=== PATIENT | female | born 1940 | race Caucasian/White ===

== ENCOUNTER 2018-04-19 07:24 | Day surgery (SDC) | payer MEDICARE, BC ==
[2018-04-19] VITALS (10 sets, daily range): BP systolic 115–147; BP diastolic 58–75
[~2018-04-19] VITALS: Ht 170.2 cm; Wt 91.6 kg
--- NOTE | 2018-04-19 06:42 | Anethesia Preoperative Eval ---
Anesthesia Pre-op PMH/ROS General Date of Evaluation: Apr 19, 2018 Time of Evaluation: 06:41 Anesthesiologist: suni ASA Score: ASA 3 Mallampati Score Class I : Soft palate, uvula, fauces, pillars visible Class II: Soft palate, uvula, fauces visible Class III: Soft palate, base of uvula visible Class IV: Only hard plate visible Mallampati Classification: Class II Surgeon: cora Diagnosis: gerd, abdominal pain Surgical Procedure: egd/colonoscopy Anesthesia History: none Social History: smoking - nonsmoker Family History: no anesthesia problems Allergies: Coded Allergies: No Known Allergies (Unverified , 04/18/18) Medications: see eMAR Past Medical History Cardiovascular: Reports: HTN Gastrointestinal/Genitourinary: Reports: GERD, other - colon polyps, abdominal pain Endocrine: Reports: DM HEENT: Reports: cataract (L), cataract (R) Hematology/Immune: Reports: other - cancer Anesthesia Pre-op Phys. Exam Physician Exam Last Vital Signs Date Time Temp Pulse Resp B/P (MAP) Pulse Ox O2 Delivery O2 Flow Rate FiO2 04/19/18 08:13 97.7 57 16 115/58 (77) 95 97.7 04/19/18 08:08 Room Air Constitutional: NAD Neurologic: CN 2-12 intact Cardiovascular: RRR Respiratory: CTA Gastrointestinal: S/NT/ND Airway Exam Mallampati Score: Class II MO: limited Neck: short TMD: 2fb ROM: limited Anesthesia Pre-op A/P Risk Assessment & Plan Assessment: asa3 Plan: mac Status Change Before Surgery: No Pre-Antibiotics Drug: Mayra Carrillo MD Apr 19, 2018 06:42
[~2018-04-19 07:24] MED LIST: Atropine Inj 1mg/10ml Syr IV PRN; DiphenhydrAMINE 50mg/ml Inj IVP PRN; LR 1000ml 1,000 ML IVLG SCH; Labetalol 5mg/ml 20ml vial IV PRN; Midazolam 2mg/2ml Inj IVP PRN; fentaNYL 100 mcg/2 mL IV PRN
[2018-04-19] MEDS ORDERED: LORAZEPAM1 MG ORAL (08:07)
[2018-04-19] MEDS ORDERED: ZYPREXA2.5 MG ORAL (08:07)
[2018-04-19] MEDS ORDERED: NAMZARIC 14 MG1 EACH PO (08:07)
[2018-04-19] MEDS ORDERED: STARLIX60 MG ORAL (08:07)
[2018-04-19] MEDS ORDERED: SERTRALINE HCL50 MG ORAL (08:07)
[2018-04-19] MEDS ORDERED: Propofol 200mg/20ml IV ONE (09:00)
[2018-04-19] MEDS ORDERED: Lidocaine 1% MPF 10mg/ml 5ml ONE (09:00)
[2018-04-19] MEDS ORDERED: LR 1000ml ONE (09:00)
--- NOTE | 2018-04-19 09:17 | Short Stay Surgery H&P ---
History of Present Illness History of Present Illness Chief Complaint Abdominal pains/acid reflux and history of colon polyps fro follow up screening. NIKHIL Farrell is a 77 year old female who was admitted on for Gerd, Abdominal Pain and history of colon polyps Patient History Allergies: Coded Allergies: No Known Allergies (Unverified , 04/18/18) PAST MEDICAL HISTORY: (1) Hyperlipidemia (2) Breast tumor Medication History Scheduled Lorazepam* (Lorazepam*), 1 MG ORAL DA, (Reported) Memantine HCl/Donepezil HCl (Namzaric 14 mg-10 mg Capsule), 1 EACH PO DA, ( Reported) Nateglinide* (Starlix*), 60 MG ORAL THREE TIMES A DAY, (Reported) Olanzapine* (Zyprexa*), 2.5 MG ORAL DAILY, (Reported) Sertraline Hcl* (Zoloft*), 50 MG ORAL DAILY, (Reported) Review of Systems Cardiovascular: Reports: no symptoms Respiratory: Reports: no symptoms Skeletal: Reports: no symptoms Gastrointestinal: Reports: gastro esophageal reflux disease Genitourinary: Reports: no symptoms Neurologic: Reports: no symptoms Hematologic: Reports: no symptoms Physical Exam Vital Signs Last Vital Signs Date Time Temp Pulse Resp B/P (MAP) Pulse Ox O2 Delivery O2 Flow Rate FiO2 04/19/18 08:13 97.7 57 16 115/58 (77) 95 97.7 04/19/18 08:08 Room Air Skin: normal HENT: normal Heart: normal Lungs: normal Abdomen: abnormal Extremities: normal Genitourinary: normal Plan Plan of Care Upper and lower GI endoscopy Preop Interventions None Summary of Findings See the reports Attestation Are the patient's medical conditions optimized for surgery? Attestation Response: yes Christian Lilly MD Apr 19, 2018 09:17
--- NOTE | 2018-04-19 09:18 | Pre-Procedure Note/Attestation ---
Pre-Procedure Note/Attestation Complete Prior to Procedure Planned Procedure: left Procedure Narrative: examination of the upper and the lower GI tract via endoscope Indications for Procedure Pre-Operative Diagnosis: R/O Gastritis/polyps Attestation I attest that I discussed the nature of the procedure; its benefits; risks and complications; and alternatives (and the risks and benefits of such alternatives ), prior to the procedure, with the patient (or the patient's legal sales representative meats). I attest that, if there was a reasonable possibility of needing a blood transfusion, the patient (or the patient's legal sales representative meats) was given the [facility] standardized written summary, pursuant to the Rob Lucio Blood Safety Act ([place] Health and Safety Code # 1645, as amended). I attest that I re-evaluated the patient just prior to the surgery and that there has been no change in the patient's H&P, except as documented below: Christian Lilly MD Apr 19, 2018 09:18
--- NOTE | 2018-04-19 10:14 | Endoscopy Procedure Note ---
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 Biopsy also done per random from gastric body, colonoscopy - pre-anal erythemia consistent with irritated skin. 5 mm polypoid lesion found in ascending colon removed via hot snare, otherwise normal total colon. Specimen: yes Pt Tolerated Procedure Well: Yes Estimated Blood Loss: none Anesthesia Anesthesiologist: Dr. Umanzor Anesthesia: moderate sedation Medications Medication Given: see anesthesia record Inserted Devices Implant(s) used?: No Quality Quality of Bowel Preparation: Excellent Did scope reach the cecum?: Yes Was there any complications?: No GI Core Measures 50 yrs or older w/o bx or poly: Yes 10yrs. F/U not recommended: Yes 10 yrs. F/U needed: Yes Med reason:<3 yrs.: System Reason:<3 yrs.: Last colonoscopy >= to 3yrs: Yes Christian Lilly MD Apr 19, 2018 10:14
--- NOTE | 2018-04-19 10:15 | Discharge Instructions ---
Discharge Instructions Discharge Instructions Follow up with: See the doctor after two weeks in office by calling first to make visit For Congestive Heart Failure Reminder Report to your physician any weight gain of 5 pounds or more in one week. Christian Lilly MD Apr 19, 2018 10:15
--- NOTE | 2018-04-19 14:44 | Immediate Post-Op Evaluation ---
Immediate Post-Op Evalulation Immediate Post-Op Evalulation Procedure: egd/colonoscopy/bx Date of Evaluation: Apr 19, 2018 Time of Evaluation: 10:25 IV Fluids: 500ml lr Blood Products: none Estimated Blood Loss: negligible Blood Pressure Systolic: 142 Blood Pressure Diastolic: 74 Pulse Rate: 60 Respiratory Rate: 18 O2 Sat by Pulse Oximetry: 97 Temperature (Fahrenheit): 98.7 Pain Score (1-10): 0 Nausea: No Vomiting: No Complications none Patient Status: awake, reacts, patent Hydration Status: adequate Drug: Mayra Carrillo MD Apr 19, 2018 14:44
--- NOTE | 2018-04-19 14:45 | 48 Hour Post Anesthesia Eval ---
Post Anesthesia Evaluation Procedure: egd/colonoscopy/bx Date of Evaluation: Apr 19, 2018 Time of Evaluation: 10:27 Blood Pressure Systolic: 132 0: 62 Pulse Rate: 68 Respiratory Rate: 18 Temperature (Fahrenheit): 98.7 O2 Sat by Pulse Oximetry: 97 Airway: patent Nausea: No Vomiting: No Hydration Status: adequate Cardiopulmonary Status: stable Mental Status/LOC: patient returned to baseline Post-Anesthesia Complications: none Follow-up care needed: N/A Mayra Portillo MD Apr 19, 2018 14:45
--- NOTE | 2018-04-19 16:30 | Operative Note - Dictated ---
DATE OF OPERATION: 04/19/2018 PROCEDURE: Esophagogastroduodenoscopy with biopsy. PREOPERATIVE DIAGNOSES: 1. History of gastroesophageal reflux. 2. Abdominal pain. POSTOPERATIVE DIAGNOSES: 1. Minimal generalized gastritis. Biopsy was taken from gastric body. 2. Incidental finding of a 5 mm submucosal lesion in the prepyloric area, mostly consistent with GIST biopsy. Otherwise, normal study. MEDICATION USED: Per Dr. Umanzor, anesthesiologist. INSTRUMENT: GIF Olympus upper GI video endoscope. DESCRIPTION OF PROCEDURE: The patient, after arriving endoscopy unit, was told about risks and benefits of the procedure, which she accepted and signed informed consent. She was then put on the left lateral decubitus position. After adequate IV sedation, the scope was gently passed through the cricopharyngeal area, was lodged into the upper esophagus, and gradually advanced towards gastroesophageal junction. The entire length of the esophagus looks normal. No evidence of any abnormality such as a stricture, ulceration, inflammatory process, etc. were seen. GE junction also looked normal. At this time, the scope was advanced into the stomach. Gastric cavity was distended with insufflation of air, which revealed evidence of mild inflammatory process along the gastric body generally, but there was no any evidence of ulceration. One random biopsy from gastric body obtained. Subsequently, the scope was introduced into the antrum, which incidentally a 5 mm submucosa lesion was seen, which was also mobile by pushing the biopsy forceps. It looked quite benign and the surface of this lesion was completely normal. Couple of biopsies from this lesion, which was thought to be consistent with GIST was made and subsequently, the scope was passed through the pylorus. First and second portion of duodenum were found to be completely normal. At this time, the scope was pulled out and the procedure was terminated. The patient tolerated the procedure well. Said Dyana Lilly DR: JOHN JOB#: [id number] CC:
--- NOTE | 2018-04-19 16:45 | Operative Note - Dictated ---
DATE OF OPERATION: 04/19/2018 SURGEON: Christian Lilly M.D. PROCEDURE: Total colonoscopy with polypectomy. PREOPERATIVE DIAGNOSIS: History of colon polyps. POSTOPERATIVE DIAGNOSES: 1. Moderate erythema over the perirectal area consistent with irritated skin, dermatitis, possibly secondary to frequent bowel movement. 2. A small 5 mm polypoid lesion found over the ascending colon, which was removed with hot biopsy forceps. Otherwise, complete normal total colonoscopy. MEDICATION USED: Per Dr. Umanzor, anesthesiologist. INSTRUMENT: GIF Olympus video colonoscope. DESCRIPTION OF PROCEDURE: The patient, after arriving endoscopy unit, was told about risks and benefits of the procedure, which she accepted and signed the informed consent. At this time, the scope was gradually advanced towards the rectal area, which revealed evidence of [id number] inflammatory process over the skin consistent with dermatitis of this area and was thought to be secondary to frequent bowel movement and laxative that she had taken the day prior preparation of this procedure. This was not medically significant and later a prescription of Lotrisone ointment was given to the patient to be applied after getting home. At this time, the scope was passed into the anal area, which did not reveal any major pathology such as hemorrhoids and the rest of the rectum looked normal. Gradually, the scope was passed through rather redundant left colon, which revealed no other abnormalities such as polyps, tumors, etc. Gradually, the scope was advanced into the transverse colon and finally guided into the right colon all the way to the base of the cecum. In the mid ascending area incidentally, a couple of small polypoid lesions were found, which were more measured about 5 to 6 mm was grabbed with hot biopsy forceps and after injection of saline in the bottom of them and it was removed and the specimen was sent to the pathology lab. They looked benign. There was no any other abnormalities and gradually within 7 minutes the scope was pulled out and finding no other abnormality, procedure was terminated. The colon cleanup was adequate and excellent. Christian Lilly M.D. DR: CARRIE JOB#: [id number] CC:
== END 2018-04-19 11:45 | disposition home or self-care (01) ==
LOC: GAS 07:24
DX: K29.50 Unspecified chronic gastritis without bleeding (principal); D12.2 Benign neoplasm of ascending colon; Z86.010 Personal history of colon polyps; E78.5 Hyperlipidemia, unspecified; E11.9 Type 2 diabetes mellitus without complications; Z85.9 Personal history of malignant neoplasm, unspecified
CPT/HCPCS: 43239; 45384; 82962; J2704; J7120; 94003; 94150